=== PATIENT | male | born 1985 | race Hispanic/Latino ===

== ENCOUNTER 2020-09-25 | Emergency (ER) | payer SELFPAY ==
[~2020-09-25] MED LIST: AMOXICILLIN500 MG PO; BENTYL10 MG PO; CIPROFLOXACN500 MG PO; FLAGYL500 MG PO; FLEXERIL PO; KETOROLAC10 MG OR; LORTAB 5 OR; LORTAB 5/3255 MG PO; LORTAB5 PO; NAPROSYN500 MG PO; NO HOME MEDS; ZOFRAN4 MG/TAB PO
== END 2020-09-25 02:13 | DRG 605 ==
DX: S81.811A Laceration without foreign body, right lower leg, initial encounter (principal); Y35.893A Legal intervention involving other specified means, suspect injured, initial encounter; Z53.20 Procedure and treatment not carried out because of patient's decision for unspecified reasons

== ENCOUNTER 2022-03-31 16:33 | Emergency (ER) | payer OTHER ==
[~2022-03-31] VITALS: Ht 165.1 cm; Wt 68.2 kg
[2022-03-31 16:48] VITALS: BP 94/61
[2022-03-31 17:00] VITALS: BP 97/60
[2022-03-31 18:53] LABS: HEMATOCRIT 40.7 % (39.0-50.0); IMMATURE GRANULOCYTES 0.1 % (0.0-5.0); MEAN CELL VOLUME 85.1 fL CALC (80.0-100.0); MEAN CORPUSCULAR HGB 28.7 pG CALC (26.0-32.0); MEAN CORPUSCULAR HGB CONC 33.7 g/dL CAL (32.0-36.0); NEUT# 13.39 thou/uL (1.82-7.42); RED BLOOD COUNT 4.78 mill/uL (4.70-6.10); RED CELL DISTRI WIDTH 12.9 % (11.5-15.5)
[2022-03-31 18:58] LABS: HEMOGLOBIN 13.7 g/dl (14.0-18.0)
[2022-03-31 19:10] LABS: ALBUMIN 4.5 g/dL (3.2-5.0); ALKALINE PHOSPHATASE 62 u/l (38-126); ANION GAP 13 (6-22 (CALC)); BUN 20 mg/dL (9-20); BUN/CREATININE RATIO 19 (12-20 (CALC)); CARBON DIOXIDE 26 mmol/l (22-30); CHLORIDE 104 mmol/l (95-108); CREATININE 1.1 mg/dL (0.7-1.3); ETHYL ALCOHOL 0 mg/dl (0-30); GFR FOR AFR.AMER. > 60 ML/MIN (>=60 (CALC)); GFR OTHER RACES > 60 ML/MIN (>=60 (CALC)); POTASSIUM 3.6 mmol/l (3.5-5.1); SGOT/AST 27 u/l (17-59); SODIUM 139 mmol/l (137-146); TOTAL PROTEIN 7.2 g/dL (6.3-8.2)
[2022-03-31 19:11] LABS: BILIRUBIN, TOTAL 0.5 mg/dL (0.0-1.4)
[2022-03-31 20:13] VITALS: BP 97/60
== END 2022-03-31 21:26 | DRG 605 ==
LOC: ED 16:33
PROVIDERS: Family Medicine
DX: S01.01XA Laceration without foreign body of scalp, initial encounter (principal); S00.03XA Contusion of scalp, initial encounter; Y35.813A Legal intervention involving manhandling, suspect injured, initial encounter; M25.511 Pain in right shoulder